=== PATIENT | female | born 1995 | race African-American/Black ===

== ENCOUNTER 2017-11-20 01:44 | Emergency (ER) | payer SELFPAY | END 2017-11-20 03:01 | disposition home or self-care (01) | LOC: ERS 01:44 | DX: D18.01 Hemangioma of skin and subcutaneous tissue (principal); I10 Essential (primary) hypertension | CPT/HCPCS: 99284 ==

== ENCOUNTER 2017-12-02 15:17 | Emergency (ER) | payer SELFPAY | END 2017-12-02 17:41 | disposition home or self-care (01) | LOC: ERS 15:17 | DX: R22.2 Localized swelling, mass and lump, trunk (principal); I10 Essential (primary) hypertension | CPT/HCPCS: 99282 ==

== ENCOUNTER 2017-12-14 01:18 | Emergency (ER) | payer SELFPAY | END 2017-12-14 02:03 | disposition home or self-care (01) | LOC: ERS 01:18 | DX: T81.31XA Disruption of external operation (surgical) wound, not elsewhere classified, initial encounter (principal); I10 Essential (primary) hypertension | CPT/HCPCS: 12020 ==

== ENCOUNTER 2018-03-25 10:57 | Emergency (ER) | payer SELFPAY | END 2018-03-25 13:32 | disposition home or self-care (01) | LOC: ERS 10:57 | DX: H60.92 Unspecified otitis externa, left ear (principal); I10 Essential (primary) hypertension | CPT/HCPCS: 99282 ==

== ENCOUNTER 2022-08-20 14:06 | Emergency (ER) | payer OTHER, SELFPAY ==
[2022-08-20] MEDS ORDERED: Ibuprofen 800 MG TAB ONE (16:32)
== END 2022-08-20 17:44 | disposition home or self-care (01) ==
LOC: ERS 14:06
DX: S93.402A Sprain of unspecified ligament of left ankle, initial encounter (principal); I10 Essential (primary) hypertension; W01.0XXA Fall on same level from slipping, tripping and stumbling without subsequent striking against object, initial encounter

== ENCOUNTER 2023-05-22 18:04 | Emergency (ER) | payer SELFPAY ==
[2023-05-22] MEDS ORDERED: Dexamethasone 10 MG/ML VIAL ONE (19:38)
[2023-05-22] MEDS ORDERED: Acetaminophen 500 MG TAB ONE (20:03)
[2023-05-22] MEDS ORDERED: Bicillin LA 1.2 MILLION UNITS/2 ML SYRINGE ONE (20:06)
== END 2023-05-22 20:33 | disposition home or self-care (01) ==
LOC: ERS 18:04
DX: J02.0 Streptococcal pharyngitis (principal); I10 Essential (primary) hypertension
CPT/HCPCS: 87430; 96372; 99283; J0561; J1100

== ENCOUNTER 2024-05-18 09:04 | Emergency (ER) | payer SELFPAY | END 2024-05-18 10:31 | disposition home or self-care (01) | LOC: ERS 09:04 | DX: J06.9 Acute upper respiratory infection, unspecified (principal); I10 Essential (primary) hypertension | CPT/HCPCS: 99283 ==